=== PATIENT | female | born 1955 | race Caucasian/White ===

== ENCOUNTER 2018-07-02 13:22 | Emergency (ER) | payer BC ==
[~2018-07-02] VITALS: Ht 165.1 cm; Wt 57.6 kg
[2018-07-02 13:41] VITALS: Ht 165.1 cm; Wt 57.6 kg
[2018-07-02] MEDS ORDERED: DOCU-144 PO (17:03)
--- NOTE | 2018-07-02 17:06 | ERD ---
ER Documentation Chief Complaint Chief Complaint Diarrhea with poss blood in stool reported, skin wnl HPI 63-year-old female presents with intermittent blood in the toilet over the last 2 weeks. She denies pain, active bleeding,, vomiting, abdominal pain. She has a colonoscopy scheduled in 10 days. Some possible weight loss over the last several months of uncertain amount. ROS All systems reviewed and are negative except as per history of present illness. Medications Home Meds Active Scripts Docusate Sodium* (Colace*) 100 Mg Capsule, 100 MG PO BID, #60 CAP Prov:NICOLAS MAYO MD 07/02/18 Allergies Allergies: Coded Allergies: No Known Allergy (Unverified , 07/02/18) PMhx/Soc Medical and Surgical Hx: pt denies Surgical Hx History of Surgery: No Anesthesia Reaction: No Hx Neurological Disorder: No Hx Respiratory Disorders: No Hx Cardiac Disorders: Yes (diabetes mellitus) Hx Psychiatric Problems: No Hx Miscellaneous Medical Probl: No Hx Alcohol Use: No Hx Substance Use: No Hx Tobacco Use: No Smoking Status: Never smoker FmHx Family History: No diabetes, No coronary disease, No other Physical Exam Vitals Vital Signs Date Temp Pulse Resp B/P (MAP) Pulse Ox O2 O2 Flow FiO2 Time Delivery Rate 07/02/18 98.1 63 18 112/81 98 13:41 (91) Physical Exam Const: No acute distress Head: Atraumatic Eyes: Normal Conjunctiva ENT: Normal External Ears, Nose and Mouth. Neck: Full range of motion. No meningismus. Resp: Clear to auscultation bilaterally Cardio: Regular rate and rhythm, no murmurs Abd: Soft, non tender, non distended. Normal bowel sounds. Rectal exam by report by PA shows no external hemorrhoids, abscess, masses. No gross blood. Skin: No petechiae or rashes Back: No midline or flank tenderness Ext: No cyanosis, or edema Neur: Awake and alert Psych: Normal Mood and Affect Result Diagram: 07/02/18 1520 07/02/18 1520 Results 24 hrs Laboratory Tests Test 07/02/18 15:09 07/02/18 15:20 Urine Color STRAW Urine Clarity CLEAR Urine pH 7.0 Urine Specific Dexter 1.005 Urine Ketones NEGATIVE mg/dL Urine Nitrite NEGATIVE mg/dL Urine Bilirubin NEGATIVE mg/dL Urine Urobilinogen NEGATIVE mg/dL Urine Leukocyte Esterase TRACE Sam/ul Urine Microscopic RBC 1 /HPF Urine Microscopic WBC 2 /HPF Urine Hemoglobin NEGATIVE mg/dL Urine Glucose NEGATIVE mg/dL Urine Total Protein NEGATIVE mg/dl White Blood Count 6.0 10^3/ul Red Blood Count 4.65 10^6/ul Hemoglobin 13.5 g/dl Hematocrit 40.2 % Mean Corpuscular Volume 86.5 fl Mean Corpuscular Hemoglobin 29.0 pg Mean Corpuscular Hemoglobin Concent 33.6 g/dl Red Cell Distribution Width 12.2 % Platelet Count 262 10^3/UL Mean Platelet Volume 8.1 fl Immature Granulocytes % 0.200 % Neutrophils % 61.8 % Lymphocytes % 28.9 % Monocytes % 6.7 % Eosinophils % 2.2 % Basophils % 0.2 % Nucleated Red Blood Cells % 0.0 /100WBC Immature Granulocytes # 0.010 10^3/ul Neutrophils # 3.7 10^3/ul Lymphocytes # 1.7 10^3/ul Monocytes # 0.4 10^3/ul Eosinophils # 0.1 10^3/ul Basophils # 0.0 10^3/ul Nucleated Red Blood Cells # 0.0 10^3/ul Sodium Level 145 mmol/L Potassium Level 4.1 mmol/L Chloride Level 99 mmol/L Carbon Dioxide Level 33 mmol/L Anion Gap 13 Blood Urea Nitrogen 12 mg/dl Creatinine 0.46 mg/dl Est Glomerular Filtrat Rate mL/min > 60 mL/min Glucose Level 102 mg/dl Calcium Level 9.9 mg/dl Total Bilirubin 0.3 mg/dl Direct Bilirubin 0.00 mg/dl Indirect Bilirubin 0.3 mg/dl Aspartate Amino Transf (AST/SGOT) 23 IU/L Alanine Aminotransferase (ALT/SGPT) 21 IU/L Alkaline Phosphatase 55 IU/L Total Protein 8.6 g/dl Albumin 5.0 g/dl Globulin 3.60 g/dl Albumin/Globulin Ratio 1.38 Lipase 20 U/L Procedures/MDM CBC normal. CMP shows no significant acute abnormalities. CT abdomen pelvis shows splenic cysts and diverticulosis without acute appreciable abscess, neoplasm, additional emergent abnormalities. No significant acute abnormalities. Patient was stable throughout the ER course. Patient presents with intermittent rectal bleeding without signs of anemia, signs of pain or active hemorrhaging. She has no signs of acute abdomen, abscess, additional emergent causes of presenting complaints. She is to be discharged home with the Colace, instructions to follow-up with GI as scheduled, otherwise return for hemorrhaging, vomiting, fevers, new worsening symptoms. The patient was stable with no new complaints during the ER course. Clinically, there is no current evidence to suggest meningitis, sepsis, acute abdomen, pneumonia, stroke, acute coronary syndrome, pulmonary embolism, aortic dissection or any other emergent condition appearing to require further evaluation or hospitalization. Patient counseled regarding my diagnostic impression and care plan. Prior to discharge all questions answered. Pt agrees with treatment plan and understands strict return precautions. Pt is instructed to follow up with primary care provider within 24-48 hours. Precautionary instructions provided including instructions to return to the ER if not improving or for any worsening or changing symptoms or concerns. Departure Diagnosis: Primary Impression: Rectal bleed Condition: Stable Patient Instructions: Rectal Bleed, Stable, Diverticulosis Additional Instructions: CT scan shows diverticulosis which can cause bleeding. Colonoscopy as schedule d. Recheck for fevers, vomiting, pain, new worsening symptoms. NICOLAS MAYO MD Jul 02, 2018 17:06
[2018-07-02 17:24] VITALS: BP 132/68; PULSE 61; RESP 18
[2018-07-02] MEDS ORDERED: ACETAMINOPHEN 325 MG TAB PO ONE (17:30)
[2018-07-02] MEDS ORDERED: IOHEXOL 300MG/ML 150 ML BTL ONE (17:45)
[2018-07-02] MEDS ORDERED: SOD CHLORIDE 0.9% 100 ML ONE (17:45)
[2018-07-11] MEDS ORDERED: MECLIZINE (12:52)
[2018-07-11] MEDS ORDERED: IBUPROFEN (12:52)
[2018-07-11] MEDS ORDERED: CREON (12:52)
[2018-07-11] MEDS ORDERED: METFORMIN (12:52)
== END 2018-07-02 17:27 | disposition home or self-care (01) ==
LOC: FTE 13:22
DX: K62.5 Hemorrhage of anus and rectum (principal); E11.9 Type 2 diabetes mellitus without complications
CPT/HCPCS: 74177; 80053; 81001; 82270; 83690; 85025; Q9967; Z7502; Z7610